=== PATIENT | female | born 1960 | race Caucasian/White ===

== ENCOUNTER → 2020-08-19 08:59 | Outpatient (CLI) | payer OTHER, SELFPAY ==
--- NOTE | ~2020-08-19 | XR_ITS ---
EXAMINATION: XR ankle RT 2V INDICATION: Right ankle pain TECHNIQUE: Two views of the right ankle are obtained. COMPARISON: None available FINDINGS: Bone alignment is normal. There is no fracture. There is mild soft tissue swelling of ankle . Dorsal and plantar calcaneal enthesophytes are noted. There is moderate osteoarthritis of the midfo ot. IMPRESSION: 1. Soft tissue swelling without acute osseous abnormality. Reviewed, dictated and finalized at location B.
--- NOTE | ~2020-08-19 | XR_ITS ---
EXAMINATION: XR foot RT 2V INDICATION: Right foot swelling TECHNIQUE: Two views of the right foot are obtained. COMPARISON: None available FINDINGS: Bone alignment is normal. There is no fracture. There is mild soft tissue swelling of ankle . Moderate osteoarthritis is noted in the midfoot and multiple interphalangeal joints. Dorsal and eileen ntar calcaneal enthesophytes are present. IMPRESSION: 1. Soft tissue swelling without acute osseous abnormality. Reviewed, dictated and finalized at location B.
== END ==
PROVIDERS: PCP Family Medicine; Visit Provider Nurse Practitioner Family
DX: M79.673 Pain in unspecified foot (principal); M79.89 Other specified soft tissue disorders
CPT/HCPCS: 73600; 73620

== ENCOUNTER 2020-09-09 07:39 | Outpatient (CLI) | payer OTHER, SELFPAY ==
--- NOTE | ~2020-09-09 | US_ITS ---
EXAMINATION: US abdomen complete DATE: 09/09/2020 08:17 INDICATION: Other secondary thrombocytopenia TECHNIQUE: Multiple grayscale and Doppler ultrasound images of the abdomen were obtained. COMPARISON: None available FINDINGS: The head and body of the pancreas are normal. The pancreatic tail is obscured by bowel gas. The liver is normal with normal echogenicity and echotexture. No surface nodularity. Normal hepatope vonnie flow in the main portal vein. The gallbladder is surgically absent. The normal common bile duct m easures 6 mm. The visualized portions of the aorta and inferior vena cava are normal. The right kidney measures 11.1 x 4.9 x 4.4 cm and contains a 4 cm cyst. The left kidney measures 10.7 x 4.4 x 4.6 cm. The kidneys demonstrate normal parenchymal echogenicity. There is no hydronephrosis. The spleen is normal in appearance and measures 10.3 cm. IMPRESSION: 1. No sonographic correlate for the patient's symptoms. Reviewed, dictated and finalized at location A.
== END 2020-09-09 07:40 | disposition home or self-care (01) ==
PROVIDERS: PCP Family Medicine; Visit Provider Internal Medicine Hematology & Oncology
DX: D69.59 Other secondary thrombocytopenia (principal)
CPT/HCPCS: 76700

== ENCOUNTER 2020-11-18 09:38 | Outpatient (CLI) | payer OTHER, SELFPAY ==
--- NOTE | 2020-11-18 12:00 | NEURO_ITS ---
Impression: # Complains of pain and numbness in both hands. # Bilateral Carpal Tunnel Syndrome, left more than right. # Left ulnar neuropathy across the elbow. # Normal needle/EMG exam. Nerve Conduction Studies Anti Sensory Summary Table Stim Site NR Peak (ms) P-T Amp (?V) Site1 Site2 Delta-P (ms) Dist (cm) Pato (m/s) Left Median Anti Sensory (2-3nd Digit) Wrist 4.8 14.5 Wrist 2-3nd Digit 4.8 14.0 29 Wrist 5.0 22.4 Wrist 2-3nd Digit 4.8 14.0 29 Right Median Anti Sensory (2-3nd Digit) Wrist 4.6 12.9 Wrist 2-3nd Digit 4.6 14.0 30 Wrist 4.5 9.9 Wrist 2-3nd Digit 4.6 14.0 30 Left Radial Anti Sensory (Base 1st Digit) Wrist 2.2 23.5 Wrist Base 1st Digit 2.2 0.0 Right Radial Anti Sensory (Base 1st Digit) Wrist 2.5 14.5 Wrist Base 1st Digit 2.5 0.0 Left Ulnar Anti Sensory (5th Digit) Wrist 2.6 71.1 Wrist 5th Digit 2.6 14.0 54 Right Ulnar Anti Sensory (5th Digit) Wrist 2.3 68.3 Wrist 5th Digit 2.3 14.0 61 Motor Summary Table Stim Site NR Onset (ms) O-P Amp (mV) Site1 Site2 Delta-0 (ms) Dist (cm) Pato (m/s) Left Median Motor (Abd Poll Brev) Wrist 5.0 1.0 Elbow Wrist 4.8 28.0 58 Elbow 9.8 1.4 Right Median Motor (Abd Poll Brev) Wrist 4.0 1.8 Elbow Wrist 5.1 28.0 55 Elbow 9.1 2.2 Left Ulnar Motor (Abd Dig Minimi) Wrist 2.9 7.5 A Elbow Wrist 5.6 27.0 48 A Elbow 8.5 6.1 B Elbow Wrist 3.4 21.0 62 B Elbow 6.3 4.5 Right Ulnar Motor (Abd Dig Minimi) Wrist 2.7 4.1 A Elbow Wrist 5.0 28.0 56 A Elbow 7.7 3.5 F Wave Studies NR F-Lat (ms) L-R F-Lat (ms) Left Median (Mrkrs) (Abd Poll Brev) 27.44 0.00 Right Median (Mrkrs) (Abd Poll Brev) 27.44 0.00 Left Ulnar (Mrkrs) (Abd Dig Min) 27.74 0.57 Right Ulnar (Mrkrs) (Abd Dig Min) 28.31 0.57 EMG Side Muscle Nerve Root Ins Act Fibs Amp Dur Recrt Comment Right 1stDorInt Ulnar C8-T1 Nml Nml Nml Nml Nml Right Ext Indicis Radial (Post Int) C7-8 Nml Nml Nml Nml Nml Right Ext Digitorum Radial (Post Int) C7-8 Nml Nml Nml Nml Nml Right BrachioRad Radial C5-6 Nml Nml Nml Nml Nml Right PronatorTeres Median C6-7 Nml Nml Nml Nml Nml Right Abd Poll Brev Median C8-T1 Nml Nml Nml Nml Nml Left 1stDorInt Ulnar C8-T1 Nml Nml Nml Nml Nml Left Ext Indicis Radial (Post Int) C7-8 Nml Nml Nml Nml Nml Left Ext Digitorum Radial (Post Int) C7-8 Nml Nml Nml Nml Nml Left BrachioRad Radial C5-6 Nml Nml Nml Nml Nml Left PronatorTeres Median C6-7 Nml Nml Nml Nml Nml Left Abd Poll Brev Median C8-T1 Nml Nml Nml Nml Nml MTDD
== END 2020-11-18 09:39 | disposition home or self-care (01) ==
PROVIDERS: PCP Family Medicine; Visit Provider Family Medicine
DX: R20.0 Anesthesia of skin (principal); G56.03 Carpal tunnel syndrome, bilateral upper limbs; G56.22 Lesion of ulnar nerve, left upper limb
CPT/HCPCS: 95886; 95911

== ENCOUNTER 2021-07-28 08:18 | Outpatient (CLI) | payer BC, SELFPAY ==
[2021-07-28 08:42] LABS: Basophils Absolute Auto 0.1 K/mm3 (0.0-0.1); Basophils Percent Auto 0.9 % (0.2-1.2); Eosinophils Absolute Auto 0.1 K/mm3 (0-0.3); Eosinophils Percent Auto 2.2 % (0-4.4); Hematocrit 44.7 % (37.0-47.0); Hemoglobin 14.6 g/dL (12.0-15.0); Immature Granulocyte Absolute 0.01 K/mm3 (0.00-0.031); Immature Granulocyte Percent A 0.2 % (0-0.5); Lymphocytes Absolute Auto 1.76 K/mm3 (0.9-3.2); Lymphocytes Percent Auto 32.6 % (18.3-44.2); Mean Corpuscular HGB Conc 32.7 g/dl (32-36); Mean Corpuscular Hemoglobin 32.2 pg (26-34); Mean Corpuscular Volume 98.5 fl (80-100); Mean Platelet Volume 11.9 fl (7.4-10.4); Monocytes Absolute Auto 0.4 K/mm3 (0.1-0.6); Monocytes Percent Auto 6.9 % (2.6-8.5); Neutrophils Absolute Auto 3.1 K/mm3 (1.3-6.7); Neutrophils Percent Auto 57.2 % (45.5-73.1); Platelet Count Result 127 k/mm3 (150-375); Red Blood Count 4.54 M/mm3 (4.2-5.4); Red Cell Distribution Width 11.7 % (11.5-14.5); White Blood Count 5.4 K/mm3 (4.5-10.0)
[2021-07-28 08:47] LABS: Blood Urea Nitrogen 26 mg/dL (8-26); Carbon Dioxide 25 mmol/L (22-30); Chloride 102 mmol/L (98-109); Estimated Glomerular Filt Rate 51; Glucose 93 mg/dL (70-105); Potassium 4.5 mmol/L (3.5-4.9); Sodium 139 mmol/L (138-146)
[2021-07-28 10:20] LABS: Folic Acid > 20.0 ng/mL (2.76->20)
== END 2021-07-28 08:19 | disposition home or self-care (01) ==
LOC: ANHLAB 08:22
PROVIDERS: PCP Family Medicine; Visit Provider Internal Medicine Hematology & Oncology
DX: D69.59 Other secondary thrombocytopenia (principal)
CPT/HCPCS: 36415; 80048; 82607; 82746; 85025

== ENCOUNTER 2022-07-27 08:08 | Outpatient (CLI) | payer BC, SELFPAY ==
--- NOTE | ~2022-07-27 | MM_ITS ---
EXAMINATION: MM screening [facility] BI w parveen HISTORY: Screening TECHNIQUE: Craniocaudal and mediolateral oblique 3-D tomosynthesis images were obtained and synthetic 2-D images were generated. CAD analysis was submitted and interpreted. COMPARISON: Comparison to multiple prior studies sequentially, with oldest reviewed study dated 02/02. BREAST PARENCHYMAL COMPOSITION: There are scattered areas of fibroglandular density. FINDINGS: There is no evidence of suspicious mass, calcification, or architectural distortion to sugg est malignancy in either breast. There has been no suspicious interval change. IMPRESSION: 1. No mammographic evidence of malignancy. 2. Recommend routine screening mammography in one year. BI-RADS Category 1: Negative Reviewed, dictated and finalized at location A.
== END 2022-07-27 08:09 | disposition home or self-care (01) ==
LOC: ANHIMG 08:10
PROVIDERS: PCP Family Medicine; Visit Provider Obstetrics & Gynecology
DX: Z12.31 Encounter for screening mammogram for malignant neoplasm of breast (principal)
CPT/HCPCS: 77063; 77067

== ENCOUNTER 2023-02-22 06:49 | Outpatient (CLI) | payer BC, SELFPAY ==
--- NOTE | ~2023-02-22 | CT_ITS ---
CT Scan of the Chest without Contrast: Clinical Indication: Lung cancer screening, personal history of nicotine dependence Technique: Contiguous sections were acquired throughout the chest without intravenous contrast. Dose reduction technique was used on this scan by utilizing automated exposure control and iterative recon struction technique. The dose-length product (DLP) was 158.09 mGy-cm. Findings: There is no evidence of any significant mediastinal, hilar or axillary lymphadenopathy. The mediastin al soft tissues appear normal. There is no evidence of pleural or pericardial effusion. Calcified right middle lobe granuloma present. There is mild biapical scarring. Images through the upper abdomen reveal no abnormalities. Impression: Lung RADS 2: Benign appearance. 12 month follow-up screening CT advised. Reviewed, dictated and finalized at location . Impression: Lung RADS 2: Benign appearance. 12 month follow-up screening CT advised.
== END 2023-02-22 06:50 | disposition home or self-care (01) ==
LOC: ANHIMG 06:53
PROVIDERS: PCP Family Medicine; Visit Provider Internal Medicine Hematology & Oncology
DX: Z12.2 Encounter for screening for malignant neoplasm of respiratory organs (principal); Z87.891 Personal history of nicotine dependence
CPT/HCPCS: 71271

== ENCOUNTER 2023-09-28 08:56 | Outpatient (CLI) | payer BC, SELFPAY ==
--- NOTE | ~2023-09-28 | MM_ITS ---
EXAMINATION: MM screening [facility] BI w parveen HISTORY: Screening TECHNIQUE: Craniocaudal and mediolateral oblique 3-D tomosynthesis images were obtained and synthetic 2-D images were generated. CAD analysis was submitted and interpreted. COMPARISON: Comparison to multiple prior studies sequentially, with oldest reviewed study dated 06/2013. BREAST PARENCHYMAL COMPOSITION: There are scattered areas of fibroglandular density. FINDINGS: There is no evidence of suspicious mass, calcification, or architectural distortion to sugg est malignancy in either breast. There has been no suspicious interval change. IMPRESSION: 1. No mammographic evidence of malignancy. 2. Recommend routine screening mammography in one year. BI-RADS Category 1: Negative Reviewed, dictated and finalized at location A.
== END 2023-09-28 08:57 | disposition home or self-care (01) ==
PROVIDERS: PCP Family Medicine; Visit Provider Obstetrics & Gynecology
DX: Z12.31 Encounter for screening mammogram for malignant neoplasm of breast (principal)
CPT/HCPCS: 77063; 77067

== ENCOUNTER 2024-02-26 08:25 | Outpatient (CLI) | payer BC, SELFPAY ==
--- NOTE | ~2024-02-26 | CT_ITS ---
CT Scan of the Chest without Contrast: Clinical Indication: Lung cancer screening, nicotine dependence Technique: Contiguous sections were acquired throughout the chest without intravenous contrast. Dose reduction technique was used on this scan by utilizing automated exposure control and iterative recon struction technique. The dose-length product (DLP) was 113.14 mGy-cm. COMPARISON: 02/23/2023 Findings: There is no evidence of any significant mediastinal, hilar or axillary lymphadenopathy. The mediastin al soft tissues appear normal. There is no evidence of pleural or pericardial effusion. Large calcified right middle lobe granuloma noted. No other pulmonary nodule seen. Images through the upper abdomen reveal no abnormalities. Impression: Lung RADS 2: Benign appearance. 12 month follow-up screening CT advised. Reviewed, dictated and finalized at location . Impression: Lung RADS 2: Benign appearance. 12 month follow-up screening CT advised.
== END 2024-02-26 08:26 | disposition home or self-care (01) ==
PROVIDERS: PCP Family Medicine; Visit Provider Internal Medicine Hematology & Oncology
DX: Z12.2 Encounter for screening for malignant neoplasm of respiratory organs (principal); Z87.891 Personal history of nicotine dependence
CPT/HCPCS: 71271

== ENCOUNTER 2024-11-07 13:39 | Outpatient (CLI) | payer BC, SELFPAY ==
--- NOTE | ~2024-11-07 | MM_ITS ---
EXAMINATION: MM screening keri BI w parveen HISTORY: Screening mammogram TECHNIQUE: Craniocaudal and mediolateral oblique 3-D tomosynthesis images were obtained and synthetic 2-D images were generated. CAD analysis was submitted and interpreted. COMPARISON: 09/28/2023, 07/27/2022 BREAST PARENCHYMAL COMPOSITION:Not Dense. There are scattered areas of fibroglandular density. FINDINGS: No suspicious mass, calcification, or architectural distortion are identified in either thea ast to suggest malignancy. There has been no suspicious interval change. IMPRESSION: No mammographic evidence of malignancy. Recommend routine screening mammography in one year. BI-RADS Category 1: Negative Reviewed, dictated and finalized at location .
--- OUTSIDE RECORDS SUMMARY | 2024-11-07 13:44 | XMS_ITS | Encounter Summary ---
Author Organization [facility] Address [address] [place] [address] Care Team Providers Care Practice Office Associate Name Role Phone Nitish Xiao MD Primary Care Provider [phone] Encounter Details Date Type Department Care Team (Late st Contact Info) Description 06/19/2019 Lab Requisition [facility] DermPath Lab [address] [facility] [place] [address] Micheal Daniels MD [address] [place] [address] Social History Tobacco Use Types Packs/Day Years Used Date Smoking Tobacco: Never Assessed Comments Unknown Sex and Gender Information Value Date Recorded Sex Assigned at Not on file Legal Sex Female 4:08 AM CDT Gender Identity Not on file Sexual Orientation Not on file documented as of this encounter Plan of Treatment Not on file documented as of this encounter Procedures Procedure Name Priority Date/Time Associated Diagnosis Comments DERMATOPATHOLOGY Routine 06/19/2019 12:0 0 AM SUPERVISORY EXAMINER documented in this encounter Results * DERMATOPATHOLOGY (06/19/2019 12:00 AM SUPERVISORY EXAMINER) Case Report Dermatopathology Report Case: [id number] Authorizing Provider: Micheal Daniels MD Collected: 06/19/2019 12:00 AM Ordering Location: [facility] DermPath Lab Received: 06/19/2019 12:34 PM Pathologist: Sylvia Galindo MD Specimen: Skin, right anterior tibial 0 1:30 PM SUPERVISORY EXAMINER DERMATOPATHOLOGY LABORATORY Final Diagnosis Specimen A. SKIN, right anterior tibial: SQUAMOUS CELL CARCINOMA, WELL DIFFERENTIATED (C44.722) 0 1:30 PM SUPERVISORY EXAMINER DERMATOPATHOLOGY LABORATORY at 1330 SUPERVISORY EXAMINER Clinical History R/O neoplasm 0 1:30 PM SUPERVISORY EXAMINER DERMATOPATHOLOGY LABORATORY Gross Description Specimen A: Received is one formalin filled container labeled with the patient's name and designated right anterior tibial. The specimen consists of a shave biopsy measuring 8x5x1 mm. Jar 0. 0 1:30 PM SUPERVISORY EXAMINER DERMATOPATHOLOGY LABORATORY Microscopic Description Specimen A. SKIN, right anterior tibial: Arising in the epidermis and extending into the dermis there are irregularly shaped aggregates of keratinocytes showing evidence of premature cornification. 0 1:30 PM SUPERVISORY EXAMINER DERMATOPATHOLOGY LABORATORY Disclaimer An external and internal positive and negative controls are appropriate for the histochemical, immunohistochemical and immunofluorescence stain(s) in this case (if any), except where stated explicitly. The performance characteristics of the stain(s) cited in this report were developed and its performance characteristic determined by the Dermatopathology Laboratory at [facility], directed by Dr. Jackson Rose. These tests need not be, and therefore are not, approved by the [place] Food and Drug Administration. The tests are used for clinical purposes. Billing Codes Specimen Charges Stain Charges 28550 1 0 1:30 PM SUPERVISORY EXAMINER DERMATOPATHOLOGY LABORATORY Embedded Images 0 1:30 PM SUPERVISORY EXAMINER DERMATOPATHOLOGY LABORATORY Pathology/Cytolog y TISSUE SPECIMEN FROM SKIN / Unknown 06/19/2019 06/19/2019 12:34 PM SUPERVISORY EXAMINER Micheal Daniels MD LAB - PATHOLOGY/CYTOLOGY ORDERAB LES Final Result DERMATOPATHOLOGY LABORATORY [facility] - Department of Dermatology [address] [place] [address], [facility] [phone] documented in this encounter Visit Diagnoses Not on filedocumented in this encounter Care Teams Practice Office Associate Relationship Specialty Start Date End Date Nitish Xiao MD [address] [place] [address] PCP - General 09/21/18 documented as of this encounter
--- OUTSIDE RECORDS SUMMARY | 2024-11-07 13:44 | XMS_ITS | Clinical Summary ---
Author Organization [facility] Address [address] [place] [address] Phone Care Team Providers Care Interior Systems Carpenter Name Role Phone Nitish Xiao MD Primary Care Provider [phone] Allergies No known active allergies Medications hydroCHLOROthiaz salo 25 mg tablet 12.5 mg. 07/10/2020 Ac tive lisinopriL (PRINIVIL) 40 mg tablet TAKE 1 TABLET BY MOUTH EVERY DAY 06/09/2020 Active rosuvastatin (CRESTOR) 40 mg tablet Take 40 mg by mouth daily. 04/26/2022 Active cyanocobalamin (VITAMIN B-12) 100 mcg tablet Take 500 mcg by mouth daily. Active folic acid (FOLVITE) 400 mcg Tablet Take 400 mcg by mouth daily. Active CALCIUM CITRATE-VITAMIN D3 ORAL Take 25 mg by mouth daily. Active allopurinoL (ZYLOPRIM) 100 mg tablet Take 1 Tablet (100 mg) by mouth daily. 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 Tobacco use 07/15/2016 Cigarette dependence 07/15/2016 Encounters Date Type Department Care Team Description 10/29/2024 External Device Data [facility] ABSTRACTION Provider, Abstract 10/01/2024 External Device Data [facility] ABSTRACTION Provider, Abstract 09/24/2024 External Device Data [facility] ABSTRACTION Provider, Abstract 08/14/2024 Refill [facility] Oncology and Hematology - [address] [place] [address] Sundar Bryan MD from Last 3 Months Family History Medical History Relation Name Comments Acute lymphoblastic leukemia Father Heart Disease Father Diabetes Mother Diabetes Sister 1 Heart Failure Sister 1 Liver Cancer Sister 1 Relation Name Status Comments Brother 1 Alive Brother 2 Alive Brother 3 Alive Brother 4 Daughter Alive Father Mother Alive Sister 1 Sister 2 Alive Social History Tobacco Use Types Packs/Day Years Used Date Smoking Tobacco: Every Day Cigarettes 1 40 Smokeless Tobacco: Never Tobacco Cessation:Ready to Q uit: Not Asked; Counseling Given: Not Answered Alcohol Use Standard Drinks/Week Comments Yes 0 (1 standard drink = 0.6 oz pur e alcohol) occasionally Comments No Sex and Gender Information Value Date Recorded Sex Assigned at Female 03/28/2024 5:14 PM TRIMMER TAILER Legal Sex Female 9:33 AM TRIMMER TAILER Gender Identity Female 03/28/2024 5:14 PM TRIMMER TAILER Sexual Orientation Straight 03/28/2024 5: 14 PM TRIMMER TAILER Last Filed Vital Signs Vital Sign Reading Time Taken Comments Blood Pressure 124/60 11/30/2023 9:55 AM CDT Pulse 83 11/30/2023 9:55 AM CDT Temperature 36.7 C (98 F) 11/30/2023 9:55 AM CDT Respiratory Rate 18 11/30/2023 9:55 AM CDT Oxygen Saturation 96% 11/30/2023 9:55 AM CDT Inhaled Oxygen Concentration - - Weight 80.3 kg (177 lb) 11/30/2023 9:55 AM CDT Height 170.2 cm (5' 7) 07/28/2021 8:58 AM CDT Body Mass Index 27.72 07/28/2021 8:58 AM CDT Plan of Treatment Health Maintenance Due Date Last Done Comments Pre-Diabetes and Diabetes Screening 1961 DTAP/TDAP/TD VACCINES (1 - Tdap) 1980 HPV/Cotest (21-29) 1982 CERVICAL CANCER SCREENING 1991 HPV/Cotest (30-65) 1991 PAP SMEAR 1991 BREAST CANCER SCREENING 2001 COLORECTAL SCREENING 2006 Colorectal Cancer Screening 2006 FIT-DNA Q 3 years 2006 FIT/FOBT Q 1 year 2006 Flex Sig/CT Colonography Q 5 years 2006 Lung Cancer Screening 2011 ZOSTER VACCINE (1 of 2) 2011 INFLUENZA VACCINE (#1) 2024 RSV VACCINE (60+ or ) (1 - 1-dose 75+ series) 2036 Medical Devices Implanted Type Area Esl Tutor Device Identifier Shelf Expiration Date Model / Serial / Lot Sealant Floseal W/ Adptr 10ml [id number] - [id number] Implanted:Qty : 1 on 07/22/2016 by Joaquin Donahue MD at [facility] Sealant N/A: Spine Lumbar LEROY- BIOSCIENCE [id number] 11/04/2017 [id number] / / [id number] Insurance BCBS BLUE ACCESS CHOICE RX OPTUM RX Member Subscriber Plan / Payer (Ef fective for All Dates) Name:Kaci White Relation to Subscriber:Self Name:Kaci White Payer ID:Not on file Type:RX LDI Address: [address] [facility] BLUE ACCESS CHOICE Advance Directives For more information, please contact: [phone] * Full Code (Latest Code Status on File) Date Activated Date Inactivated Comments 07/22/2016 6:42 AM 07/22/2016 1:13 PM Care Teams Interior Systems Carpenter Relationship Specialty Start Date End Date Nitish Xiao MD [address] [place] [address] PCP - General Family Practice 07/15/16
--- OUTSIDE RECORDS SUMMARY | 2024-11-07 13:44 | XMS_ITS | Clinical Summary ---
Author Organization [facility] Address [address] [place] [address] Care Team Providers Care Import/Export Specialist Name Role Phone Nitish Xiao MD Primary Care Provider [phone] Source Comments [facility],non-owned Affiliates and Associated Physician Practices is amultiple site organization consisting of ambulatory clinics and hospital sitesin [place], [place], [place] and [place]. This disclosure is being madepursuant to the Care Everywhere program and may not contain all information available regarding this patient. Last updated 18.[facility] Social History Tobacco Use Types Packs/Day Years Used Date Smoking Tobacco: Never Assessed Comments Unknown Sex and Gender Information Value Date Recorded Sex Assigned at Not on file Legal Sex Female 4:08 AM CDT Gender Identity Not on file Sexual Orientation Not on file Plan of Treatment Health Maintenance Due Date Last Done Comments COLOGUARD (AGES 45-75) - COL ON CA SCREENING 1961 COLON MONITORING 1961 COLONOSCOPY - COLON CA SCREENING 1961 CT COLONOGRAPHY - COLON CA SCREENING 1961 Colorectal Cancer Screening 1961 FIT - COLON CA SCREENING 1961 FLEX SIG - COLON CA SCREENING 1961 LIPID TESTING 1961 MAMMOGRAM 1961 HIV SCREENING 1976 HEPATITIS C SCREENING 04/21/1979 DTAP/TDAP/TD VACCINES (1 - Tdap) 1980 PNEUMOCOCCAL VACCINE 50+ (1 of 1 - PCV) 2011 ZOSTER VACCINE (1 of 2) 2011 COVID-19 VACCINE (1 - 2023-2 5 season) 2024 DEPRESSION SCREENING 05/08/2024 INFLUENZA VACCINE (Season Ended) 2025 Respiratory Syncytial Virus (RSV) Vaccine Pt: or over 60 yrs (1 - 1-dose 75+ series) 2036 HEPATITIS B VACCINE Aged Out No longe r eligible based on patient's age to complete this topic HIB VACCINE Aged Out No longer eligi ble based on patient's age to complete this topic HPV VACCINE Aged Out No longer eligi ble based on patient's age to complete this topic MENINGOCOCCAL (Group B) VACC INE SHARED DECISION-MAKING Aged Out No longer eligibl e based on patient's age to complete this topic MENINGOCOCCAL GROUPS A/C/Y/W VACCINE Aged Out No longer eligible b ased on patient's age to complete this topic Insurance AETNA Care Teams Import/Export Specialist Relationship Specialty Start Date End Date Nitish Xiao MD [address] [place] [address] PCP - General 09/21/18
--- OUTSIDE RECORDS SUMMARY | 2024-11-07 13:44 | XMS_ITS | Encounter Summary ---
Author Organization [facility] Address [address] [place] [address] Care Team Providers Care Operations Lead Name Role Phone Nitish Xiao MD Primary Care Provider [phone] Encounter Details Date Type Department Care Team (Late st Contact Info) Description 07/25/2019 Lab Requisition [facility] DermPath Lab [address] [place] [address] Micheal Daniels MD [address] [place] [address] Social History Tobacco Use Types [...] Priority Date/Time Associated Diagnosis Comments DERMATOPATHOLOGY Routine 07/24/2019 12:0 0 AM CDT documented in this encounter Results * DERMATOPATHOLOGY (07/24/2019 12:00 AM CDT) Case Report Dermatopathology Report Case: [id number] Authorizing Provider: Micheal Daniels MD Collected: 07/24/2019 12:00 AM Ordering Location: [facility] Derm[facility] Lab Received: 07/25/2019 07:27 AM Pathologist: Sylvia Galindo MD Specimen: Skin, right ant tibial 0 12:37 PM CDT DERMATOPATHOLOGY LABORATORY Final Diagnosis Specimen A. SKIN, right ant tibial: SQUAMOUS CELL CARCINOMA, WELL DIFFERENTIATED (C44.722) 0 12:37 PM CDT DERMATOPATHOLOGY LABORATORY at 1237 CDT Clinical History Bx proven SCC. Previous Bx: [id number]. 0 12:37 PM CDT DERMATOPATHOLOGY LABORATORY Gross Description Specimen A: Received is one formalin filled container labeled with the patient's name and designated right ant tibial. The specimen consists of a curettage and desiccation biopsy measuring [id number]. Jar 0. 0 12:37 PM CDT DERMATOPATHOLOGY LABORATORY Microscopic Description Specimen A. SKIN, right ant tibial: Arising in the epidermis and extending into the dermis there are irregularly shaped aggregates of keratinocytes showing evidence of premature cornification. 0 12:37 PM CDT DERMATOPATHOLOGY LABORATORY Disclaimer An external and internal positive and negative controls are appropriate for the histochemical, immunohistochemical and immunofluorescence stain(s) in this case (if any), except where stated explicitly. The performance characteristics of the stain(s) cited in this report were developed and its performance characteristic determined by the Dermatopathology Laboratory at [facility], directed by Dr. Jackson Rose. These tests need not be, and therefore are not, approved by the [place] Food and Drug Administration. The tests are used for clinical purposes. Billing Codes Specimen Charges Stain Charges 98771 1 0 12:37 PM CDT DERMATOPATHOLOGY LABORATORY Embedded Images 0 12:37 PM CDT DERMATOPATHOLOGY LABORATORY Pathology/Cytolog y TISSUE SPECIMEN FROM SKIN / Unknown 07/24/2019 07/25/2019 7:27 AM CDT us Micheal Daniels MD LAB - PATHOLOGY/CYTOLOGY ORDERAB LES Final Result DERMATOPATHOLOGY LABORATORY [facility] - Department of Dermatology [facility] [place] [address], [facility] [phone] documented in this encounter Visit Diagnoses Not on filedocumented in this encounter Care Teams Operations Lead Relationship Specialty Start Date End Date Nitish Xiao MD [address] [place] [address] PCP - General 09/21/18 documented as of this encounter
--- OUTSIDE RECORDS SUMMARY | 2024-11-07 13:44 | XMS_ITS | Clinical Summary ---
Author Organization [facility] Address [address] [place] [address] Care Team Providers Care Overlay Operator Name Role Phone ClarkGREG Joshi Magi Primary Care Provider Allergies No known active allergies Medications hydrochlorothiazi de 25 MG tablet 11/28/2018 Act humberto fluoxetine 40 MG capsule 12/05/2018 Active lisinopril 20 MG tabletIndications :Uncontrolled hypertension Take 1 tablet (20 mg total) by mouth daily. 30 tablet 2 01/21/2019 Active Active Problems Problem Noted Date Diagnosed Date Tobacco dependence 01/09/2019 Anxiety and depression 12/06/2018 Uncontrolled hypertension 12/06/2018 Family History Medical History Relation Comments Diabetes Father myocardial infarction Father 80s Diabetes Mother valve replacement Sister in her 60s Relation Status Comments Father Mother Sister Social History Tobacco Use Types Packs/Day Years Used Date Smoking Tobacco: Every Day Cigarettes 1 30 Smokeless Tobacco: Never Alcohol Use Standard Drinks/Week Comments Yes 0 (1 standard drink = 0.6 oz pur e alcohol) AUDIT-C Answer Date Recorded Frequency of Alcohol Consumption Monthly or less 01/09/2019 Average Number of Drinks Not on file 019 Frequency of Binge Drinking Not on file 08/2018 Comments No Sex and Gender Information Value Date Recorded Sex Assigned at Not on file Legal Sex Female 4:20 PM CDT Gender Identity Not on file Sexual Orientation Not on file Last Filed Vital Signs Vital Sign Reading Time Taken Comments Blood Pressure 142/78 01/09/2019 8:15 AM CDT Pulse 64 01/09/2019 8:15 AM CDT Temperature 36.8 C (98.3 F) 01/09/2019 8:15 AM CDT Respiratory Rate 16 01/09/2019 8:15 AM CDT Oxygen Saturation - - Inhaled Oxygen Concentration - - Weight 81.6 kg (180 lb) 01/09/2019 8:15 AM CDT Height - - Body Mass Index - - Plan of Treatment Health Maintenance Due Date Last Done Comments Cervical Cancer Screening Pa p Smear (Age 30 to 64) Every 3 Years 1961 Colorectal Cancer Screening Colonoscopy (10 Years) 1961 Annual Physical 1964 Hepatitis C 1979 DTaP, Tdap and Td Vaccines ( 1 - Tdap) 1980 Pneumococcal Vaccine: 50+ Ye ars (1 of 2 - PCV) 1980 Cervical Cancer Screening Pa p with HPV Testing (Age 30 to 64) Every 5 Years 1991 Cervical Cancer Screening with HPV 1991 Mammogram Screening 2001 Zoster Vaccines (1 of 2) 2011 COVID-19 Vaccine (2023-2 5 season) 2024 RSV Immunization or 60+ Years (1 - 1-dose 75+ series) 2036 Meningococcal B Vaccine Aged Out No l onger eligible based on patient's age to complete this topic Meningococcal Vaccine Aged Out No ashley kiarra eligible based on patient's age to complete this topic RSV Immunizations Under 20 Months Aged Out No longer eligible based on patient's age to complete this topic Insurance [address] [place] [address] [employer]-[facility] Care Teams Overlay Operator Relationship Specialty Start Date End Date Magi Rodas V, ION EXCHANGE OPERATOR- [address] [place] [address] [place] [address] PCP - General Nurse Practitioner Family 12/06/18
== END 2024-11-07 13:40 | disposition home or self-care (01) ==
LOC: ANHIMG 13:41
PROVIDERS: PCP Family Medicine; Visit Provider Obstetrics & Gynecology
DX: Z12.31 Encounter for screening mammogram for malignant neoplasm of breast (principal)
CPT/HCPCS: 77063; 77067

== ENCOUNTER 2024-11-19 00:06 | Day surgery (SDC) | payer BC, SELFPAY ==
[2024-10-30 14:07] VITALS: BMI 25.9
--- OUTSIDE RECORDS SUMMARY | 2024-11-19 00:10 | XMS_ITS | Clinical Summary ---
Author Organization [facility] Address [address] [place] [address] Phone Care Team Providers Care Welding Production Supervisor Name Role Phone Nitish Xiao MD Primary Care Provider [phone] Allergies No known active allergies Medications hydroCHLOROthiaz [...] External Device Data STL ABSTRACTION Provider, Abstract from Last 3 Months Family History Medical [...] Sex Assigned at Female 03/28/2024 5:14 PM ASSOCIATE VETERINARIAN Legal Sex Female 9:33 AM ASSOCIATE VETERINARIAN Gender Identity Female 03/28/2024 5:14 PM ASSOCIATE VETERINARIAN Sexual Orientation Straight 03/28/2024 5: 14 PM ASSOCIATE VETERINARIAN Last Filed Vital Signs Vital Sign Reading [...] series) 2036 Medical Devices Implanted Type Area Boathouse Keeper Device Identifier Shelf Expiration Date Model / Serial / Lot Sealant Floseal W/ Adptr 10ml [id number] - [id number] Implanted:Qty : 1 on 07/22/2016 by Joaquin Donahue MD at [facility] Sealant N/A: Spine Lumbar LEROY- BIOSCIENCE [id number] 11/04/2017 [id number] / / [id number] Insurance [employer] CHOICE RX OPTUM RX Member Subscriber Plan / Payer (Ef fective for All Dates) Name:Kaci White Relation to Subscriber:Self Name:Kaci White Payer ID:Not on file Type:RX LDI Address: [place] [employer] ACCESS CHOICE Advance Directives For more information, please contact: [phone] * Full Code (Latest Code Status on File) Date Activated Date Inactivated Comments 07/22/2016 6:42 AM 07/22/2016 1:13 PM Care Teams Welding Production Supervisor Relationship Specialty Start Date End Date Nitish Xiao MD [address] [place] [address] PCP - General Family Practice 07/15/16
--- OUTSIDE RECORDS SUMMARY | 2024-11-19 00:10 | XMS_ITS | Encounter Summary ---
Author Organization [facility] Address [address] [facility] [place] [address] Care Team Providers Care Back Tacker Name Role Phone Nitish Xiao MD Primary Care Provider [phone] Encounter Details Date Type Department Care Team (Late st Contact Info) Description 07/25/2019 Lab Requisition [facility] DermPath Lab [address] [facility], [facility] [place] [address] Micheal Daniels MD [address] [place] [address] Social History Tobacco Use Types [...] AM CDT) Case Report Dermatopathology Report Case: [id number] Authorizing Provider: Micheal Daniels MD Collected: 07/24/2019 12:00 AM Ordering Location: [facility] DermPath Lab Received: 07/25/2019 07:27 AM Pathologist: Sylvia Galindo MD Specimen: Skin, right ant tibial 0 12:37 PM CDT DERMATOPATHOLOGY LABORATORY Final Diagnosis Specimen A. SKIN, right ant tibial: SQUAMOUS CELL CARCINOMA, WELL DIFFERENTIATED (C44.722) 0 12:37 PM CDT DERMATOPATHOLOGY LABORATORY at 1237 CDT Clinical History Bx proven SCC. Previous Bx: [id number]. 0 12:37 PM CDT DERMATOPATHOLOGY LABORATORY Gross Description Specimen A: Received is one formalin filled container labeled with the patient's name and designated right ant tibial. The specimen consists of a curettage and desiccation biopsy measuring [id number]. Jar 0. 0 12:37 PM CDT DERMATOPATHOLOGY [...] characteristic determined by the Dermatopathology Laboratory at [facility], directed by Dr. Jackson Rose. These tests need not be, and therefore are not, approved by the [place] Food and Drug Administration. The tests are used for clinical purposes. Billing Codes Specimen Charges Stain Charges 80179 1 0 12:37 PM CDT DERMATOPATHOLOGY LABORATORY Embedded Images 0 12:37 PM CDT DERMATOPATHOLOGY LABORATORY Pathology/Cytolog y TISSUE SPECIMEN FROM SKIN / Unknown 07/24/2019 07/25/2019 7:27 AM CDT us Micheal Daniels MD LAB - PATHOLOGY/CYTOLOGY ORDERAB LES Final Result DERMATOPATHOLOGY LABORATORY [facility] - Department of Dermatology [facility] [facility], [address]th [place] [address], [facility] [phone] documented in this encounter Visit Diagnoses Not on filedocumented in this encounter Care Teams Back Tacker Relationship Specialty Start Date End Date Nitish Xiao MD [address] [place] [address] PCP - General 09/21/18 documented as of this encounter
--- OUTSIDE RECORDS SUMMARY | 2024-11-19 00:10 | XMS_ITS | Clinical Summary ---
Author Organization [facility] Address [address] [place] [address] Care Team Providers Care Design Printing Machine Setter Name Role Phone Nitish Xiao MD Primary Care Provider [phone] Source Comments [facility],non-owned Affiliates and Associated Physician Practices is amultiple site organization consisting of ambulatory clinics and hospital sitesin [place], [place], [place] and [place]. This disclosure is being madepursuant to the Care Everywhere program and may not contain all information available regarding this patient. Last updated 18.[facility] Social History Tobacco Use Types Packs/Day Years [...] season) 2024 DEPRESSION SCREENING 05/08/2024 INFLUENZA VACCINE (#1) 2025 Respiratory Syncytial Virus (RSV) Vaccine Pt: [...] complete this topic Insurance [employer] Care Teams Design Printing Machine Setter Relationship Specialty Start Date End Date Nitish Xiao MD [address] [place] [address] PCP - General 09/21/18
--- OUTSIDE RECORDS SUMMARY | 2024-11-19 00:10 | XMS_ITS | Clinical Summary ---
Author Organization [facility] Address [address] [place] [address] Care Team Providers Care Change Management Expert Name Role Phone ClarkGREG Joshi Magi Primary [...] complete this topic Insurance [address] [place] [address] [facility] Care Teams Change Management Expert Relationship Specialty Start Date End Date Magi Rodas V, MICROBIOLOGY SOIL SCIENTIST- [address] [place] [address] [place] [address] PCP - General Nurse Practitioner Family 12/06/18
--- OUTSIDE RECORDS SUMMARY | 2024-11-19 00:10 | XMS_ITS | Encounter Summary ---
Author Organization [facility] Address [address] [facility] [place] [address] Care Team Providers Care Power And Recovery Supervisor Name Role Phone Nitish Xiao MD Primary Care Provider [phone] Encounter Details Date Type Department Care Team (Late st Contact Info) Description 06/19/2019 Lab Requisition [facility] DermPath Lab [address] [facility], [facility] [place] [address] Micheal Daniels MD [address] [place] [address] Social History Tobacco Use Types [...] Comments DERMATOPATHOLOGY Routine 06/19/2019 12:0 0 AM VACATION PLANNER documented in this encounter Results * DERMATOPATHOLOGY (06/19/2019 12:00 AM VACATION PLANNER) Case Report Dermatopathology Report Case: [id number] Authorizing Provider: Micheal Daniels MD Collected: 06/19/2019 12:00 AM Ordering Location: [facility] DermPath Lab Received: 06/19/2019 12:34 PM Pathologist: Sylvia Galindo MD Specimen: Skin, right anterior tibial 0 1:30 PM VACATION PLANNER DERMATOPATHOLOGY LABORATORY Final Diagnosis Specimen A. SKIN, right anterior tibial: SQUAMOUS CELL CARCINOMA, WELL DIFFERENTIATED (C44.722) 0 1:30 PM VACATION PLANNER DERMATOPATHOLOGY LABORATORY at 1330 VACATION PLANNER Clinical History R/O neoplasm 0 1:30 PM VACATION PLANNER DERMATOPATHOLOGY LABORATORY Gross Description Specimen A: Received is one formalin filled container labeled with the patient's name and designated right anterior tibial. The specimen consists of a shave biopsy measuring 8x5x1 mm. Jar 0. 0 1:30 PM VACATION PLANNER DERMATOPATHOLOGY LABORATORY Microscopic Description Specimen A. SKIN, right anterior tibial: Arising in the epidermis and extending into the dermis there are irregularly shaped aggregates of keratinocytes showing evidence of premature cornification. 0 1:30 PM VACATION PLANNER DERMATOPATHOLOGY LABORATORY Disclaimer An external and internal positive and negative controls are appropriate for the histochemical, immunohistochemical and immunofluorescence stain(s) in this case (if any), except where stated explicitly. The performance characteristics of the stain(s) cited in this report were developed and its performance characteristic determined by the Dermatopathology Laboratory at [facility], directed by Dr. Jackson Rose. These tests need not be, and therefore are not, approved by the [place] Food and Drug Administration. The tests are used for clinical purposes. Billing Codes Specimen Charges Stain Charges 23114 1 0 1:30 PM VACATION PLANNER DERMATOPATHOLOGY LABORATORY Embedded Images 0 1:30 PM VACATION PLANNER DERMATOPATHOLOGY LABORATORY Pathology/Cytolog y TISSUE SPECIMEN FROM SKIN / Unknown 06/19/2019 06/19/2019 12:34 PM VACATION PLANNER Micheal Daniels MD LAB - PATHOLOGY/CYTOLOGY ORDERAB LES Final Result DERMATOPATHOLOGY LABORATORY [facility] - Department of Dermatology [address] [facility], [address] [place] [address], [facility] [phone] documented in this encounter Visit Diagnoses Not on filedocumented in this encounter Care Teams Power And Recovery Supervisor Relationship Specialty Start Date End Date Nitish Xiao MD [address] [place] [address] PCP - General 09/21/18 documented as of this encounter
[2024-11-19 12:07] VITALS: BP 132/85; PULSE 84; RESP 16; TEMP 36.2; O2SAT 100; BMI 25.0
[2024-11-19] MEDS: LACTATED RINGERS 1,000 ML 150 ML IV CONT (12:25)
--- NOTE | 2024-11-19 12:52 | WPDANESEPPF ---
Anes - Initial Pre Proc Eval Procedure: Operation Date: 11/19/24 13:30 Proposed Procedures p Screening Colonoscopy - Charanjit Escoto MD Date/Time: 11/19/24 12:52 Surgeon: Charanjit Escoto MD Pre Op Diagnosis: Screening Patient Data Age: 64 Gender: F Height: 1.7 m Weight: 72.3 kg Last Vital Signs Temp 97.1 F L 11/19/24 12:07 Pulse 84 11/19/24 12:07 Resp 16 11/19/24 12:07 BP 132/85 11/19/24 12:07 Pulse Ox 100 11/19/24 12:07 O2 Del Method Room Air 11/19/24 12:07 Allergies Allergy/AdvReac Type Severity Reaction Status Date / Time No Known Allergies Allergy Verified 11/19/24 12:14 Home Medications ?Medication ?Instructions ?Recorded ?Confirmed ?Type fluoxetine 40 mg capsule (Prozac) 40 mg PO DAILY 02/12/20 11/19/24 History folic acid 400 mcg tablet 0.4 mg PO DAILY 02/16/22 11/19/24 History allopurinol 100 mg tablet 100 mg PO BID #180 tabs 03/28/22 11/19/24 Rx hydrochlorothiazide 12.5 mg tablet See Rx Instructions .Route 07/05/24 11/19/24 Rx .COMPLEX #90 tabs lisinopril 40 mg tablet See Rx Instructions .Route 07/05/24 11/19/24 Rx .COMPLEX #90 tabs cholecalciferol (vitamin D3) 50 50 mcg PO DAILY 07/15/24 11/19/24 History mcg (2,000 unit) capsule rosuvastatin 20 mg tablet (Crestor) 20 mg PO DAILY #30 tabs 10/31/24 11/19/24 Rx Patient hx anesthesia problems: none Family hx anesthesia problems: none Results Review: All pre-operative results and documents have been reviewed as part of the pre-operative evaluation. [facility] Past Medical History Medical History CTS (carpal tunnel syndrome) BMI 28.0-28.9,adult Tobacco abuse BMI 26.0-26.9,adult Family History Family History Father Family history of diabetes mellitus in first degree relative Mother Family history of diabetes mellitus in first degree relative Diabetes mellitus Sibling No problems noted. Sibling No problems noted. Social History Social History Smoking packs per day: 0.5 Smoking cigarettes per day: 10.0 Years smoked: 30 Smoking pack-years: 15.00 Smoking status: Current every day smoker Tobacco type: cigarettes Alcohol intake: never Substance use: never Substance use type: does not use Do You Feel Safe in your Home?: Yes Lack of Transportation: No Lack of Food: Never True Current Housing: I Have Housing Concerned About Future Housing: No Difficulty Paying Gas/Electric Bills: No Difficulty Paying for Meds: No Currently Unemployed: No Education: High School Diploma/GED Difficulty w/ Childcare or Family Care: No Living arrangements: with family Occupation/Education: occupation 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 HTN, hyperlipidemia, smoker 1/2 ppd. Informed Consent: The patient's anesthetic plan and its attendant risks and benefits were discussed with the patient/family/POA. Questions were solicited and answers provided to the satisfaction of the patient/family/POA.
--- NOTE | 2024-11-19 13:43 | PM.IMHP ---
H&P: HPI History of Present Illness Date/Time: 11/19/24 13:43 Chief Complaint: History of colon polyps Narrative: The patient has a history of colonic polyps, the last colonoscopy was 5 years ago. Review of Systems Review of Systems: All systems reviewed & are unremarkable except as noted in HPI and below PMFSH Past Medical History Medical History CTS (carpal tunnel syndrome) BMI 28.0-28.9,adult Tobacco abuse BMI 26.0-26.9,adult Family History Family History Father Family history of diabetes mellitus in first degree relative Mother Family history of diabetes mellitus in first degree relative Diabetes mellitus Sibling No problems noted. Sibling No problems noted. Social History Social History Smoking packs per day: 0.5 Smoking cigarettes per day: 10.0 Years smoked: 30 Smoking pack-years: 15.00 Smoking status: Current every day smoker Tobacco type: cigarettes Alcohol intake: never Substance use: never Substance use type: does not use Do You Feel Safe in your Home?: Yes Lack of Transportation: No Lack of Food: Never True Current Housing: I Have Housing Concerned About Future Housing: No Difficulty Paying Gas/Electric Bills: No Difficulty Paying for Meds: No Currently Unemployed: No Education: High School Diploma/GED Difficulty w/ Childcare or Family Care: No Living arrangements: with family Occupation/Education: occupation 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 Gender identity (if verbalized by the patient): Female Spiritual care concerns: No Meds Home Medications and Allergies Home Medications ?Medication ?Instructions ?Recorded ?Confirmed ?Type fluoxetine 40 mg capsule (Prozac) 40 mg PO DAILY 02/12/20 11/19/24 History folic acid 400 mcg tablet 0.4 mg PO DAILY 02/16/22 11/19/24 History allopurinol 100 mg tablet 100 mg PO BID #180 tabs 03/28/22 11/19/24 Rx hydrochlorothiazide 12.5 mg tablet See Rx Instructions .Route 07/05/24 11/19/24 Rx .COMPLEX #90 tabs lisinopril 40 mg tablet See Rx Instructions .Route 07/05/24 11/19/24 Rx .COMPLEX #90 tabs cholecalciferol (vitamin D3) 50 50 mcg PO DAILY 07/15/24 11/19/24 History mcg (2,000 unit) capsule rosuvastatin 20 mg tablet (Crestor) 20 mg PO DAILY #30 tabs 10/31/24 11/19/24 Rx Allergies Allergy/AdvReac Type Severity Reaction Status Date / Time No Known Allergies Allergy Verified 11/19/24 12:14 Vital Signs Vital Signs - 24 hr 11/19/24 12:07 Temperature 97.1 F L Pulse Rate 84 Respiratory Rate 16 Blood Pressure 132/85 Pulse Oximetry 100 Oxygen Delivery Room Air Exam Const: General: cooperative and healthy appearing Resp: Effort & Inspection: normal respiratory effort and able to speak in complete sentences Auscultation: clear to auscultation bilaterally Cardio: Rate: regular rate Rhythm: regular rhythm GI: Inspection: normal to inspection GI Palp: No No hepatosplenomegaly present Auscultation: normal bowel sounds Rectal Exam: deferred Skin: General skin exam: normal color Psych: Appearance: grossly normal Mental Status: mental status grossly normal Assessment and Plan Assessment and plan (1) History of colonic polyps: Code(s): Z86.0100 - Personal history of colon polyps, unspecified Status: Acute Assessment and Plan: The patient is deemed a good candidate for the procedure. Consent signed. Will proceed.
--- NOTE | 2024-11-19 14:24 | S_PTH ---
PATIENT: Kaci White LOC: [facility] U#:[id number] AGE/SX: 64/F ROOM: RE11/19/[address]: Charanjit Escoto MD : 1960 BED: DIS: 11/19/2024 SPEC #: [id number] RECD: 11/20/24 06:49 STATUS: MORTEZA REQ #: [id number] ODELL: 11/19/24 14:[address]: Charanjit Escoto DEPT: [facility] Surgical RECD BY: Goldie Blanton ENTERED: 11/20/24 06:49 SP TYPE: Surgical OTHR DR: Nitish Xiao MD Tissues: A - Colon Polypectomy B - Colon Polypectomy C - Colon Polypectomy Procedures: Hematoxylin and Eosin Stain Gross and Microscopic Level 4
[2024-11-19 14:28] VITALS: BP 95/54; PULSE 69; RESP 19; O2SAT 95
[2024-11-19 14:38] VITALS: BP 99/55; PULSE 72; RESP 19; O2SAT 93
[2024-11-19 14:48] VITALS: BP 123/62; PULSE 55; RESP 14; O2SAT 96
== END 2024-11-19 15:04 | disposition home or self-care (01) ==
PROVIDERS: PCP Family Medicine; Visit Provider Internal Medicine Gastroenterology
PROC: 0DJD8ZZ Inspection of Lower Intestinal Tract, Via Natural or Artificial Opening Endoscopic (ICD-10-PCS; CPT 45378; principal; 2024-11-19 13:30)
DX: Z12.11 Encounter for screening for malignant neoplasm of colon (principal); D12.3 Benign neoplasm of transverse colon; D12.4 Benign neoplasm of descending colon; D12.5 Benign neoplasm of sigmoid colon; I10 Essential (primary) hypertension; E78.5 Hyperlipidemia, unspecified; G56.00 Carpal tunnel syndrome, unspecified upper limb; F17.210 Nicotine dependence, cigarettes, uncomplicated
CPT/HCPCS: 45385; 88305; J2003; J2704; J7120